=== PATIENT | male | born 1970 | race Caucasian/White ===

== ENCOUNTER 2017-09-12 19:46 | Observation (INO) ==
[2017-09-13] MEDS ORDERED: Acetaminophen 325 MG TABLET PO PRN (03:33)
[2017-09-13] MEDS ORDERED: Naloxone 0.4 MG/ML INJ IVP PRN (03:33)
[2017-09-13] MEDS ORDERED: *HR* Morphine 2 MG/ML SYRINGE IVP PRN (03:41)
[2017-09-13] MEDS ORDERED: Ondansetron 4 MG/2 ML VIAL IVP PRN (03:41)
[2017-09-13] MEDS ORDERED: D5% in 0.45% NACL 1,000 ML IVC SCH (03:45)
--- NOTE | 2017-09-13 03:49 | Internal Med History&Physical ---
Date of Encounter: 09/13/17 Time of Encounter: 15:00 Assessment and Plan (1) Gastritis and duodenitis Current visit: Yes Status: Acute (2) Abdominal pain Current visit: No Status: Acute Possible secondary to gastritis secondary to excessive use of caffeinated materiel, will add Protonix twice a day add Carafate. Cannot rule out gallbladder disease with his severe right upper quadrant pain. Will check gallbladder ultrasound. If gallbladder ultrasound is negative we will start a clear liquid diet advance as tolerated, recheck lipase. Workup done at [facility] [place] emergency room consistent with liver function test which was normal, lipase mildly elevated which could be secondary to vomiting. Qualifiers: Abdominal location: upper abdomen, unspecified Qualified Code(s): R10.10 - Upper abdominal pain, unspecified (3) HTN (hypertension) Current visit: Yes Status: Acute Continue metoprolol and hold on diuretics Qualifiers: Hypertension type: essential hypertension Qualified Code(s): I10 - Essential (primary) hypertension (4) Diabetes mellitus Current visit: Yes Status: Acute Hold on oral medication, start insulin sliding scale Qualifiers: Diabetes mellitus type: type 2 Diabetes mellitus complication status: with unspecified complications Diabetes mellitus senior living insulin use: without 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 Keyes is a 47 year old male with past medical history of gastroesophageal reflux disease-like symptom. Patient stated that he is drinking get 4-5, of coffee daily in addition he is taking caffeinated soda occasionally. Patient is stated. His started to have severe bilateral upper quadrant and epigastric pain 10 out of 10 in severity and constant sharp-like sensation associated with nausea nonbilious nonbloody vomitus. Patient denies any use of nonsteroidal anti-inflammatory drugs. Patient stated lately has gastroesophageal reflux disease-like symptom. Patient denies any black stools or blood in stool. Patient denies any similar pain in the past. Patient denies any chest pain or shortness of breath. Patient denies any dysuria or hematuria. Past Med Surg Social Fam HX - Past Medical History Medical history: diabetes, hypertension, thyroid disease, other Psychiatric history: no psych history - Past Surgical History Surgical History: thyroidectomy - Social History Smoking Status: Current every day smoker (ppdx y) Packs per day: 1 1/2 Smokeless Tobacco Status: No Alcohol use: rarely Drug use: none - Additional Family History Additional family history: Mother has a history of small cell lung cancer father has a history of coronary artery disease Internal Medicine - H&P: Meds Levothyroxine Sodium [Synthroid] 137 mcg PO DAILY 10/31/15 [History] Losartan [Cozaar] 25 mg PO DAILY 10/31/15 [History] 3 Allergy/AdvReac Type Severity Reaction Status Date / Time No Known Allergies Allergy Verified 03/27/17 09:10 All Systems PM: A 10-system review of systems was performed and is negative for pertinent findings except as documented above in the HPI. - Constitutional Vitals: Temp Pulse Resp BP Pulse Ox 98.9 F 78 18 126/87 97 09/13/17 03:31 09/13/17 03:31 09/13/17 03:31 09/13/17 03:31 09/13/17 03:31 General appearance: Present: mild distress, A&O X 3 - Head Head exam: Present: atraumatic, normocephalic - Neck Neck exam general surgery: Present: supple, trachea midline. Absent: lymphadenopathy - Respiratory Respiratory exam: Present: decreased breath sounds. Absent: rales, rhonchi, wheezes - Cardiovascular Cardiovascular exam: Present: RRR, +S1, +S2. Absent: diastolic murmur, gallop, rubs, systolic murmur - GI/Abdominal GI/Abdominal exam: Present: hypoactive bowel sounds, soft, tenderness ( Bilateral lower quadrant tenderness epigastric tenderness, Rm sign positive) , no peritoneal signs. Absent: distended - Extremities Exam Extremities exam: Present: warm, radial pulses palpable and symmetrical. Absent : calf tenderness, cyanotic, pedal edema - Neurological Exam Neurological exam: Present: CN II-XII intact, oriented X3, no focal deficits. Absent: pronater drift, facial droop, speech deficit - Skin Skin exam: Present: dry, intact
[2017-09-13] MEDS: Sucralfate 1 GM TABLET PO SCH ×3 (04:20→12:01)
[2017-09-13 05:16] LABS: Basophils % 0.5 %; Eosinophils # 0.1 K/mcL (0.0-0.6); Hematocrit 41.7 % (37.5-50.1); Hemoglobin 13.9 g/dL (12.9-16.9); Immature Granulocytes % 0.4 % (0-4); Lymphocytes # 2.1 K/mcL (0.6-4.6); Mean Corpuscular HGB Conc 33.3 g/dL (31.6-35.5); Mean Corpuscular Hemoglobin 31.9 pg (28.0-33.3); Mean Corpuscular Volume 95.6 fL (83.0-100.0); Mean Platelet Volume 11.6 fL (9.4-12.4); Monocytes # 0.9 K/mcL (0.0-1.3); Monocytes % 11.6 %; Neutrophils # 4.5 K/mcL (1.6-8.9); Platelet Count 123 K/mcL (140-400); Red Blood Count 4.36 M/mcL (4.19-5.50); Red Cell Distribution Width 12.5 % (11.5-14.5); Segmented Neutrophils % 59.5 %
[2017-09-13 05:42] LABS: BUN/Creatinine Ratio 14 (6-26); Blood Urea Nitrogen 13 mg/dL (6-20); Calcium 8.5 mg/dL (8.6-10.3); Carbon Dioxide 27 mEq/L (23-29); Chloride 107 mEq/L (98-107); Glucose 119 mg/dL (70-105); Lipase 18 Units/L (11-82); Magnesium 1.8 mg/dL (1.6-2.6); Osmolality,Calculated 289 (280-300); Phosphorous 4.4 mg/dL (2.7-4.5); Potassium 4.1 mEq/L (3.5-5.1); Sodium 139 mEq/L (136-145); eGFR For African Americans > 60 (> 60); eGFR For Non-African Americans > 60 (> 60)
[2017-09-13] MEDS ORDERED: Pantoprazole 40 MG VIAL IVP SCH (06:00)
[2017-09-13] MEDS ORDERED: Insulin LISPRO 300 UNITS/3 ML VIAL SQ SCH (06:00)
[2017-09-13 10:37] VITALS: BP 134/77
--- NOTE | 2017-09-13 12:08 | Discharge Summary ---
Date of Encounter: 09/13/17 Time of Encounter: 12:00 - Discharge Diagnosis (1) Abdominal pain Priority: Primary Status: Acute Qualifiers: Abdominal location: upper abdomen, unspecified Qualified Code(s): R10.10 - Upper abdominal pain, unspecified (2) HTN (hypertension) Priority: Secondary Status: Acute Qualifiers: Hypertension type: essential hypertension Qualified Code(s): I10 - Essential (primary) hypertension (3) Diabetes mellitus Priority: Secondary Status: Acute Qualifiers: Diabetes mellitus type: type 2 Diabetes mellitus complication status: with unspecified complications Diabetes mellitus longterm insulin use: without 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 Qualified Code(s): E11.8 - Type 2 diabetes mellitus with unspecified complications - Discharge Medications Prescriptions: Omeprazole [PriLOSEC] 20 mg PO DAILY #30 cap Sucralfate [Carafate] 1 gm PO QIDAC #120 tablet Home Medications: Levothyroxine Sodium [Levoxyl] 150 mcg PO DAILY 09/13/17 [History] Losartan Potassium [Cozaar] 100 mg PO DAILY 09/13/17 [History] Omeprazole [PriLOSEC] 20 mg PO DAILY #30 cap 09/13/17 [Rx] Sucralfate [Carafate] 1 gm PO QIDAC #120 tablet 09/13/17 [Rx] Allergies/Adverse Reactions: 3 Allergy/AdvReac Type Severity Reaction Status Date / Time No Known Allergies Allergy Verified 03/27/17 09:10 Procedures/tests Complete & Pending: Procedures Performed prior 72 hours Category Date Time Status US gall bladder [US] Routine Exams 09/13/17 08:00 Completed Date of admission: 09/12/17 21:24 Primary care physician: Blanca Garza CNP - Patient Status Disposition: Home, Self-Care Condition: Fair Overall status at discharge: patient is back to baseline - Discharge Instructions Follow Up With: Blanca Garza CNP [Primary Care Provider] - 09/19/17 10:20 am - Diet and Activity Activity: resume usual activities as tolerated Diet: regular diet Hospital course: Mr. Keyes is a 47 year old male with past medical history of gastroesophageal reflux disease-like symptom. He presented with severe bilateral upper quadrant and epigastric pain. He stated that he is drinking about 10 cups of coffee a day in addition he is taking caffeinated soda occasionally. Because of the symptoms he presented to an outlying facility where he had a CT abdomen and pelvis that came back with no acute findings. He was transferred to a facility for his abdominal pain. His laboratory workup was unremarkable. We did check a right upper quadrant ultrasound which came back unremarkable. By the time I saw him the following morning he was pain-free and was tolerating diet and is asking me for discharge. I did explain to the patient that ideally I would want him to prove that he can tolerate diet as I had only given him a full liquid diet at the time of me seeing him. He stated that he was completely pain free and would rather be discharged. I told him I have no issues with him leaving as long as he follows up with her primary care physician in its probably worth it to have him follow-up with a data entry email processor for possible endoscopy. He was discharged in stable condition on 09/13/2017 - Time Spent with Patient Total time spent providing and/or coordinating discharge services: - Constitutional Vitals: Temp Pulse Resp BP Pulse Ox 99.7 F H 103 16 134/77 94 09/13/17 10:34 09/13/17 10:34 09/13/17 10:34 09/13/17 10:34 09/13/17 10:34 General appearance: Present: mild distress, A&O X 3 Exam: GEN: NAD CVS: RRR. S1, S2, No m/r/g RESP: CTAB ABD: Soft, NT, ND, +BS EXT: No edema. 2+ DP, No rashes NEURO: Nonfocal
== END 2017-09-13 13:29 | disposition home or self-care (01) ==
LOC: 3ANU
PROVIDERS: ADMIT Family Medicine; ATTEND Family Medicine